=== PATIENT | male | born 1955 | race American Indian/Alaskan Native ===

== ENCOUNTER 2022-04-20 23:58 | Inpatient (IN) | payer MEDICARE ==
[2022-04-21] MEDS ORDERED: ASPIRIN 81 MG TAB CHEW PO ONE (05:35)
--- NOTE | 2022-04-21 06:08 | XRay Report ---
XR chest 1V ap INDICATION / CLINICAL INFORMATION: dyspnea. COMPARISON: None available. FINDINGS: SUPPORT DEVICES: None. HEART /PULMONARY VASCULATURE: Cardiac silhouette is enlarged without significant pulmonary vasculatur e congestion. LUNGS / PLEURA: Right lower lobe airspace consolidation. Left lung appears clear. No sizable pleural effusion. No pneumothorax. ADDITIONAL FINDINGS: No significant additional findings. IMPRESSION: Right lower lobe airspace consolidation, suspicious for pneumonia. Signer Name: Sukhi Aguilar MD Signed: 04/21/2022 6:04 AM Workstation Name: [id number]
[2022-04-21 06:18] LABS: Basophils % (Auto) 0.6 % (0.0-1.8); Eosinophils # (Auto) 0.1 K/mm3 (0.0-0.4); Eosinophils % (Auto) 1.2 % (0.0-4.3); Hematocrit 38.8 % (35.5-45.6); Hemoglobin 12.7 gm/dl (11.8-15.2); Lymphocytes # (Auto) 1.7 K/mm3 (1.2-5.4); Lymphocytes % (Auto) 26.8 % (13.4-35.0); Mean Corpuscular HGB Conc 33 % (32-34); Mean Corpuscular Volume 95 fl (84-94); Monocytes # (Auto) 0.6 K/mm3 (0.0-0.8); Monocytes % (Auto) 9.8 % (0.0-7.3); Platelet Count 180 K/mm3 (140-440); Red Cell Distribution Width 14.1 % (13.2-15.2)
[2022-04-21 06:39] LABS: Albumin 4.1 g/dL (3.9-5); Calcium 9.4 mg/dL (8.4-10.2)
[2022-04-21] MEDS ORDERED: FUROSEMIDE 40 MG/4 ML INJ IV ONE (08:29)
[2022-04-21] MEDS ORDERED: AZITHROMYCIN/NS 500 MG/250 ML 500 MG/250 ML BAG IV ONE (08:55)
[2022-04-21] MEDS ORDERED: cefTRIAXone/NS 1 GM/50 ML 1 GM/50 ML BAG IV ONE (08:55)
--- NOTE | 2022-04-21 09:01 | Emergency Department Report ---
ED Shortness of Breath HPI - General Chief Complaint: Dyspnea/Respdistress Stated Complaint: SOB Time Seen by Provider: 04/21/22 06:06 Source: patient, EMS Mode of arrival: Stretcher Limitations: No Limitations - History of Present Illness Initial Comments: 66-year-old male presents to the hospital complaining of shortness breath since last night. Exacerbated with activity. Denies chest pain, leg edema, calf tenderness, cough, or fever. Patient has a history of hypertension, CVA with residual left-sided weakness, and CHF. He denies history of CAD no previous medical record available comparison. Patient does not have his current medication list. He does note that he takes a water pill has not taken his medications in 4 days because his friend has not come by to help administer his medication. Patient is vaccinated for COVID - Related Data Allergies Allergy/AdvReac Type Severity Reaction Status Date / Time No Known Allergies Allergy Unverified 04/21/22 00:17 ED Review of Systems ROS: Stated complaint: SOB Other details as noted in HPI Comment: All other systems reviewed and negative ED Physical Exam - General Limitations: No Limitations - Other Other exam information: General: No acute distress Head: Atraumatic Eyes: normal appearance ENT: Moist mucous membranes Neck: Normal appearance, no midline tenderness Chest: Clear to auscultation bilaterally CV: Regular rate and rhythm Abdomen: Soft, normal bowel sounds, nontender, nondistended, no rebound or guarding Back: Normal inspection Extremity: Normal inspection, full range of motion, no calf tenderness or leg edema Neuro: Alert O x 3, mild left-sided facial droop noted. 4/5 left upper and lower extremity strength compared to 5/5 on the right (chronic as per patient secondary to CVA) Psych: Appropriate behavior Skin: No rash ED Course Vital Signs 04/21/22 04/21/22 04/21/22 00:15 05:51 06:01 Temperature 98.6 F Pulse Rate 88 81 89 Respiratory 16 21 15 Rate Blood Pressure 185/123 Blood Pressure 128/76 [Right] O2 Sat by Pulse 98 97 94 Oximetry 04/21/22 04/21/22 04/21/22 06:15 06:31 06:45 Temperature Pulse Rate 93 H 86 88 Respiratory 35 H 33 H 21 Rate Blood Pressure 179/115 179/115 173/120 Blood Pressure [Right] O2 Sat by Pulse 96 98 97 Oximetry 04/21/22 04/21/22 04/21/22 07:01 07:15 07:31 Temperature Pulse Rate 81 88 83 Respiratory 26 H 28 H 23 Rate Blood Pressure 171/109 177/112 177/112 Blood Pressure [Right] O2 Sat by Pulse 98 96 97 Oximetry 04/21/22 04/21/22 04/21/22 07:45 08:01 08:15 Temperature Pulse Rate 98 H 83 69 Respiratory 19 24 32 H Rate Blood Pressure 173/120 182/126 177/105 Blood Pressure [Right] O2 Sat by Pulse Oximetry 04/21/22 04/21/22 04/21/22 08:28 08:31 08:45 Temperature Pulse Rate 68 91 H 74 Respiratory 20 19 23 Rate Blood Pressure 177/105 187/100 Blood Pressure 177/102 [Right] O2 Sat by Pulse 98 61 L Oximetry 04/21/22 04/21/22 04/21/22 09:01 09:15 09:31 Temperature Pulse Rate 87 78 63 Respiratory 20 32 H 32 H Rate Blood Pressure 187/100 187/100 187/100 Blood Pressure [Right] O2 Sat by Pulse 77 L Oximetry ED Medical Decision Making - Lab Data Result diagrams: 04/21/22 05:58 04/21/22 05:58 Lab Results 04/21/22 04/21/22 Range/Units 05:58 05:58 WBC 6.3 (4.5-11.0) K/mm3 RBC 4.10 (3.65-5.03) M/mm3 Hgb 12.7 (11.8-15.2) gm/dl Hct 38.8 (35.5-45.6) % MCV 95 H (84-94) fl MCH 31 (28-32) pg MCHC 33 (32-34) % RDW 14.1 (13.2-15.2) % Plt Count 180 (140-440) K/mm3 Lymph % (Auto) 26.8 (13.4-35.0) % Ellis % (Auto) 9.8 H (0.0-7.3) % Eos % (Auto) 1.2 (0.0-4.3) % Baso % (Auto) 0.6 (0.0-1.8) % Lymph # (Auto) 1.7 (1.2-5.4) K/mm3 Ellis # (Auto) 0.6 (0.0-0.8) K/mm3 Eos # (Auto) 0.1 (0.0-0.4) K/mm3 Baso # (Auto) 0.0 (0.0-0.1) K/mm3 Seg Neutrophils % 61.6 (40.0-70.0) % Seg Neutrophils # 3.9 (1.8-7.7) K/mm3 Sodium 143 (137-145) mmol/L Potassium 3.6 (3.6-5.0) mmol/L Chloride 104.2 (98-107) mmol/L Carbon Dioxide 28 (22-30) mmol/L Anion Gap 14 mmol/L BUN 22 H (9-20) mg/dL Creatinine 1.8 H (0.8-1.3) mg/dL Estimated GFR 38 ml/min BUN/Creatinine Ratio 12 % Glucose 157 H (75-100) mg/dL Calcium 9.4 (8.4-10.2) mg/dL Total Bilirubin 0.40 (0.1-1.2) mg/dL AST 24 (5-40) units/L ALT 30 (7-56) units/L Alkaline Phosphatase 72 (35-129) units/L Troponin T 0.016 (0.00-0.029) ng/mL NT-Pro-B Natriuret Pep 4624 H (0-900) pg/mL Total Protein 7.6 (6.3-8.2) g/dL Albumin 4.1 (3.9-5) g/dL Albumin/Globulin Ratio 1.2 % - EKG Data -: EKG Interpreted by Me (Premature atrial complexes) EKG shows normal: sinus rhythm, ST-T waves (No STEMI) Rate: normal (79) - EKG Data When compared to previous EKG there are: previous EKG unavailable - Radiology Data Radiology results: report reviewed XR chest 1V ap INDICATION / CLINICAL INFORMATION: dyspnea. COMPARISON: None available. FINDINGS: SUPPORT DEVICES: None. HEART /PULMONARY VASCULATURE: Cardiac silhouette is enlarged without significant pulmonary vasculature congestion. LUNGS / PLEURA: Right lower lobe airspace consolidation. Left lung appears clear. No sizable pleural effusion. No pneumothorax. ADDITIONAL FINDINGS: No significant additional findings. IMPRESSION: Right lower lobe airspace consolidation, suspicious for pneumonia. - Medical Decision Making 66-year-old male presents to the hospital complain shortness of breath since last night. X-ray read as possible right-sided infiltrate suspicious for pneumonia. Patient does not have infectious symptoms. I am highly suspicious of underlying CHF as a cause of pulmonary infiltrates and respiratory symptoms. BNP elevated. Patient denies chest pain. Lasix provided in the ED. blood cultures ordered and patient empirically treated for community-acquired pneumonia with Rocephin and azithromycin based on radiologist read. hospitalist to admit Critical Care Time: No Critical care attestation.: If time is entered above; I have spent that time in minutes in the direct care of this critically ill patient, excluding procedure time. ED Disposition Clinical Impression: Acute exacerbation of congestive heart failure, Pulmonary infiltrate, Renal insufficiency, Uncontrolled hypertension, Noncompliance with medication regimen Disposition: 01 HOME / SELF CARE / HOMELESS Is pt being admited?: Yes Condition: Stable Instructions: Hypertension (ED) Time of Disposition: 08:59 (Dr Manjinder caicedo)
--- NOTE | 2022-04-21 09:35 | History and Physical Report ---
Medications and Allergies Allergies Allergy/AdvReac Type Severity Reaction Status Date / Time No Known Allergies Allergy Unverified 04/21/22 00:17 Active Meds: Active Medications Acetaminophen (Acetaminophen 325 Mg Tab) 650 mg PO Q4H PRN PRN Reason: Pain MILD(1-3)/Fever >100.5/PEREZ Furosemide (Furosemide 40 Mg/4 Ml Inj) 40 mg IV 0600,1800 RICARDO Azithromycin (Zithromax/Ns) 500 mg in 250 mls @ 250 mls/hr IV ONCE ONE; Protocol Stop: 04/21/22 09:54 Ondansetron HCl (Ondansetron 4 Mg/2 Ml Inj) 4 mg IV Q8H PRN PRN Reason: Nausea And Vomiting Oxycodone/Acetaminophen (Oxycodone /Acetaminophen 5-325mg Tab) 1 tab PO Q6H PRN PRN Reason: Pain, Moderate (4-6) Sodium Chloride (Sodium Chloride 0.9% 10 Ml Flush Syringe) 10 ml IV BID RICARDO Sodium Chloride (Sodium Chloride 0.9% 10 Ml Flush Syringe) 10 ml IV PRN PRN PRN Reason: LINE FLUSH Exam - Constitutional Vitals: Temp Pulse Resp BP Pulse Ox 98.6 F 68 20 177/102 98 04/21/22 00:15 04/21/22 08:28 04/21/22 08:28 04/21/22 08:28 04/21/22 08:28 HEART Score - HEART Score Troponin: Troponin T 0.016 ng/mL (0.00-0.029) 04/21/22 05:58 Results - Labs CBC & Chem 7: 04/21/22 05:58 04/21/22 05:58 Labs: Laboratory Last Values WBC 6.3 K/mm3 (4.5-11.0) 04/21/22 05:58 RBC 4.10 M/mm3 (3.65-5.03) 04/21/22 05:58 Hgb 12.7 gm/dl (11.8-15.2) 04/21/22 05:58 Hct 38.8 % (35.5-45.6) 04/21/22 05:58 MCV 95 fl (84-94) H 04/21/22 05:58 MCH 31 pg (28-32) 04/21/22 05:58 MCHC 33 % (32-34) 04/21/22 05:58 RDW 14.1 % (13.2-15.2) 04/21/22 05:58 Plt Count 180 K/mm3 (140-440) 04/21/22 05:58 Lymph % (Auto) 26.8 % (13.4-35.0) 04/21/22 05:58 [place] % (Auto) 9.8 % (0.0-7.3) H 04/21/22 05:58 Eos % (Auto) 1.2 % (0.0-4.3) 04/21/22 05:58 Baso % (Auto) 0.6 % (0.0-1.8) 04/21/22 05:58 Lymph # (Auto) 1.7 K/mm3 (1.2-5.4) 04/21/22 05:58 [place] # (Auto) 0.6 K/mm3 (0.0-0.8) 04/21/22 05:58 Eos # (Auto) 0.1 K/mm3 (0.0-0.4) 04/21/22 05:58 Baso # (Auto) 0.0 K/mm3 (0.0-0.1) 04/21/22 05:58 Seg Neutrophils % 61.6 % (40.0-70.0) 04/21/22 05:58 Seg Neutrophils # 3.9 K/mm3 (1.8-7.7) 04/21/22 05:58 Sodium 143 mmol/L (137-145) 04/21/22 05:58 Potassium 3.6 mmol/L (3.6-5.0) 04/21/22 05:58 Chloride 104.2 mmol/L (98-107) 04/21/22 05:58 Carbon Dioxide 28 mmol/L (22-30) 04/21/22 05:58 Anion Gap 14 mmol/L 04/21/22 05:58 BUN 22 mg/dL (9-20) H 04/21/22 05:58 Creatinine 1.8 mg/dL (0.8-1.3) H 04/21/22 05:58 Estimated GFR 38 ml/min 04/21/22 05:58 BUN/Creatinine Ratio 12 % 04/21/22 05:58 Glucose 157 mg/dL (75-100) H 04/21/22 05:58 Calcium 9.4 mg/dL (8.4-10.2) 04/21/22 05:58 Total Bilirubin 0.40 mg/dL (0.1-1.2) 04/21/22 05:58 AST 24 units/L (5-40) 04/21/22 05:58 ALT 30 units/L (7-56) 04/21/22 05:58 Alkaline Phosphatase 72 units/L (35-129) 04/21/22 05:58 Troponin T 0.016 ng/mL (0.00-0.029) 04/21/22 05:58 NT-Pro-B Natriuret Pep 4624 pg/mL (0-900) H 04/21/22 05:58 Total Protein 7.6 g/dL (6.3-8.2) 04/21/22 05:58 Albumin 4.1 g/dL (3.9-5) 04/21/22 05:58 Albumin/Globulin Ratio 1.2 % 04/21/22 05:58
[2022-04-21] MEDS ORDERED: ACETAMINOPHEN 325 MG TAB PO PRN (10:00)
[2022-04-21] MEDS ORDERED: oxyCODONE /ACETAMINOPHEN 5-325MG TAB PO PRN (10:00)
[2022-04-21] MEDS ORDERED: ONDANSETRON 4 MG/2 ML INJ IV PRN (10:00)
--- NOTE | 2022-04-21 11:41 | Discharge Summary ---
Providers - Providers Date of discharge: 04/21/22 Primary care physician: [employer] Hospitalization Reason for admission: shortness of breath Condition: Stable Hospital course: HPI: 66-year-old male with past medical history of systolic heart failure, hypertension, type 2 diabetes, HIV on ART presenting to our facility with shortness of breath and chest pain. Patient stated that onset was last night while he was attempting to fall asleep. He began feeling chest congestion and shortness of breath and was subsequently transferred to our facility. He denied any active chest pain, palpitations, nausea, vomiting. He states he has been out of his medications for the past few days and that he was supposed to have medications delivered today. Remainder of ROS negative except for stated above Hospital course Admitted for heart failure exacerbation and right lower lobe pneumonia. Patient does not have a wbc count or fever documented. Denied any subjective symptoms of fever, muscle aches, fatigue. However, there is radiographic evidence of right lower lobe consolidation. Thus, azithromycin given in ER. re: heart failure symptoms it appears as though patient has been noncompliant on medications for last 3-4 days per history. He normally has his medicaitons administered by staff at [facility] and is evaluated by a home health RN. He did not know what meds he takes exactly other than a water pill and medicaiton for his diabetes. Extensive discussion with patient daughter Michela Mckeon ([phone]). She states the patient was recently in care home facility approximately 1 month ago. He was discharged and currently lives in a personal [facility] under the care of a woman named Kaur ([phone]). Per my conversation with Kaur, the patient has a nurse that will be visiting the home today at 2 PM. I provided the contact information for Kaur to our emergency department bottle caser who will be coordinating transportation for the patient to go back home and make his appointment visit at 2 PM today. He was advised to remain compliant with all of his medications. I will be discharging the patient with prescriptions for coreg 3.125 mg po bid, lisinopril 20 mg po daily, Lasix 40 mg p.o. daily and azithromycin 5-day course. He is advised to follow up with his pcp jeannie as well as maintain continued visits by home health RN for continued medication assistance. Assessment: #Acute systolic heart failure exacerbation #Right lower lobe pneumonia #Hypertension #Type 2 diabetes with hyperglycemia #History of HIV #Medication noncompliance Disposition: 01 HOME / SELF CARE / HOMELESS Final Discharge Diagnosis (Prints w/discharge instructions): Acute decompensated Heart Failure, medication noncompliance Time spent for discharge: 25 Core Measure Documentation - Palliative Care Palliative Care/ Comfort Measures: Not Applicable - Core Measures Any of the following diagnoses?: heart failure - Heart Failure Discharge Requirements FERNANDO/ARB for LVSD if EF <40%: Yes Beta nelson at discharge: Yes Exam - Physical Exam Narrative exam: Physical Exam: VITAL SIGNS: Reviewed. GENERAL: The patient appears normally developed, Vital signs as documented. HEAD: No signs of head trauma. EYES: Pupils are equal. Extraocular motions intact. EARS: Hearing grossly intact. MOUTH: Oropharynx is normal. NECK: No adenopathy, no JVD. CHEST: Chest with clear breath sounds bilaterally. No wheezes, rales, or rhonchi. CARDIAC: Regular rate and rhythm. S1 and S2, without murmurs, gallops, or rubs. VASCULAR: No Edema. Peripheral pulses normal and equal in all extremities. ABDOMEN: Soft, non tender and non distended. No rebound or guarding, and no masses palpated. Bowel Sounds normal. MUSCULOSKELETAL: Good range of motion of all major joints. Extremities without clubbing, cyanosis or edema. NEUROLOGIC EXAM: Alert and oriented x 4. no focal sensory or strength deficits. PSYCHIATRIC: Mood normal. SKIN: detail exam as documented in skin assessment - Constitutional Vitals: Temp Pulse Resp BP Pulse Ox 98.6 F 70 20 172/108 97 04/21/22 00:15 04/21/22 10:15 04/21/22 10:31 04/21/22 10:15 04/21/22 10:31 Plan Follow up with: PRIMARY CARE, [Primary Care Provider] - 3-5 Days Prescriptions: carvediloL [Coreg] 3.125 mg PO BID 30 Days #60 tablet Furosemide [Lasix] 40 mg PO DAILY 30 Days #30 tab lisinopriL [Lisinopril] 20 mg PO DAILY 30 Days #30 tab Azithromycin [Zithromax Z-GORDON] 250 mg PO DAILY 4 Days #4 tab
[2022-04-21 12:54] VITALS: BP 174/105
[2022-04-21] MEDS ORDERED: FUROSEMIDE 40 MG/4 ML INJ IV SCH (18:00)
--- NOTE | 2022-04-22 11:01 | Electrocardiograph Report ---
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
== END 2022-04-21 14:06 | disposition home or self-care (01) | DRG 193 ==
LOC: ED 23:58 → 3A 04-21 09:32
PROVIDERS: ADMIT Internal Medicine; ATTEND Internal Medicine
DX: J18.9 Pneumonia, unspecified organism (principal); I50.23 Acute on chronic systolic (congestive) heart failure; I13.0 Hypertensive heart and chronic kidney disease with heart failure and stage 1 through stage 4 chronic kidney disease, or unspecified chronic kidney disease; I69.354 Hemiplegia and hemiparesis following cerebral infarction affecting left non-dominant side; Z91.19 Patient's noncompliance with other medical treatment and regimen; E11.22 Type 2 diabetes mellitus with diabetic chronic kidney disease; N18.9 Chronic kidney disease, unspecified; E11.65 Type 2 diabetes mellitus with hyperglycemia
CPT/HCPCS: 36415; 71045; 80053; 83880; 84484; 85025; 87040; 93005; G0378; J0456; J0696; J1940